=== PATIENT | female | born 1950 | race Caucasian/White ===

== ENCOUNTER 2019-05-05 09:51 | Inpatient (IN) | payer OTHER ==
[~2019-05-05] VITALS: Ht 160 cm; Wt 72.6 kg
[~2019-05-05 09:51] MED LIST: ACT30 PO; ECO81 PO; FOS10 PO; GLU850 PO; HUMI SC; LANTI SQ; NAP500 PO; NEU300 PO; NORCO1 TA2 PO; TOR10 PO
[2019-05-05 10:14] VITALS: Ht 160 cm; Wt 72.6 kg
[2019-05-05 10:47] LABS: BASOPHIL % 0.1 % (0-2); PLATELET COUNT 302 x10^3mcL (130-400); RED CELL DISTRIBUTION WIDTH 14.2 % (11.5-14.5)
[2019-05-05 11:15] LABS: ALBUMIN 3.8 g/dL (3.4-5.0); ALKALINE PHOSPHATASE 118 U/L (46-116); ALT/SGPT 28 U/L (14-59); AST/SGOT 31 U/L (15-37); CALCIUM 8.9 mg/dL (8.5-10.1); CARBON DIOXIDE 22.6 mmol/L (21-32); CHLORIDE SERUM 99 mmol/L (98-107); CREATININE SERUM 0.6 mg/dL (0.6-1.0); GFR1 > 60 mL/min; GLUCOSE SERUM 179 mg/dL (74-106); POTASSIUM SERUM 4.3 mmol/L (3.5-5.1); SODIUM SERUM 135 mmol/L (136-145); TOTAL PROTEIN, SERUM 8.1 g/dL (6.4-8.2)
[2019-05-05 11:22] LABS: CHOLESTEROL 124 mg/dL (<200); HDL CHOLESTEROL 64 mg/dL (40-60)
[2019-05-05 12:21] LABS: UA SPECIFIC GRAVITY 1.015 (1.005-1.035); microscopic required? YES; urine erythrocyte TRACE (NEGATIVE)
[2019-05-05] MEDS ORDERED: BASAGLAR K100 UNIT/1 (13:56)
[2019-05-05] MEDS ORDERED: ALENDRONATE SOD70 M3 (13:58)
[2019-05-05 14:44] VITALS: BP 111/44
[2019-05-05 18:02] VITALS: BP 99/45
[2019-05-05 20:58] VITALS: BP 118/67
[2019-05-06 05:41] VITALS: BP 132/58
[2019-05-06 06:37] LABS: BASOPHIL % 0.3 % (0-2); PLATELET COUNT 251 x10^3mcL (130-400); RED CELL DISTRIBUTION WIDTH 14.1 % (11.5-14.5)
[2019-05-06 07:26] LABS: CALCIUM 7.9 mg/dL (8.5-10.1); CARBON DIOXIDE 20.5 mmol/L (21-32); CHLORIDE SERUM 102 mmol/L (98-107); CREATININE SERUM 0.5 mg/dL (0.6-1.0); GFR1 > 60 mL/min; GLUCOSE SERUM 90 mg/dL (74-106); POTASSIUM SERUM 3.6 mmol/L (3.5-5.1); SODIUM SERUM 135 mmol/L (136-145)
[2019-05-06 08:48] VITALS: BP 133/61
[2019-05-06 11:14] VITALS: BP 133/61
[2019-05-06 12:47] VITALS: BP 150/59
[2019-05-07] MEDS ORDERED: ENALAPRIL MALEA20 MG PO (22:16)
[2019-05-07] MEDS ORDERED: ALENDRONATE SOD70 M3 PO (22:16)
[2019-05-07] MEDS ORDERED: FORTAMET1000 MG PO (22:17)
[2019-05-07] MEDS ORDERED: FEOSOL65 M1 PO (22:17)
[2019-05-07] MEDS ORDERED: ATORVASTATIN CA20 M1 PO (22:17)
[2019-05-07] MEDS ORDERED: GRALISE600 MG PO (22:17)
[2019-05-07] MEDS ORDERED: AMLODIPINE BES1 CAP PO (22:18)
[2019-05-07] MEDS ORDERED: BASAGLAR K100 UNIT/1 SQ (22:18)
== END 2019-05-06 16:15 | disposition home or self-care (01) | DRG 463 ==
LOC: ED 09:51 → DU 13:00 → MU 13:00 → DU 14:15 → MU 14:25
PROVIDERS: Emergency Medicine; ADMIT Internal Medicine
DX: N10 Acute pyelonephritis (principal); E11.40 Type 2 diabetes mellitus with diabetic neuropathy, unspecified; E11.65 Type 2 diabetes mellitus with hyperglycemia; B96.20 Unspecified Escherichia coli [E. coli] as the cause of diseases classified elsewhere; I10 Essential (primary) hypertension; Z16.12 Extended spectrum beta lactamase (ESBL) resistance; Z16.24 Resistance to multiple antibiotics; Z79.4 Long term (current) use of insulin; Z79.84 Long term (current) use of oral hypoglycemic drugs; Z79.82 Long term (current) use of aspirin; Z79.891 Long term (current) use of opiate analgesic; Z85.3 Personal history of malignant neoplasm of breast; Z90.12 Acquired absence of left breast and nipple; Z80.0 Family history of malignant neoplasm of digestive organs; Z82.0 Family history of epilepsy and other diseases of the nervous system; Z68.31 Body mass index [BMI] 31.0-31.9, adult
CPT/HCPCS: 82962; 87804; 90732; 97116-GP; G0378; J0696; J1885; J1956; J2405; J7030; J7050; Q0092

== ENCOUNTER 2019-05-07 19:03 | Inpatient (IN) | payer OTHER ==
[~2019-05-07] VITALS: Ht 154.9 cm; Wt 67.8 kg
[~2019-05-07 19:03] MED LIST changes: +ALENDRONATE SOD70 M3; +BASAGLAR K100 UNIT/1
[2019-05-07 19:45] VITALS: Ht 154.9 cm; Wt 67.8 kg
--- NOTE | 2019-05-07 19:52 | NUR ---
EKG IN PROGRESS IN TRIAGE
--- NOTE | 2019-05-07 20:02 | NUR ---
PT CAME TO ED CO ABNORMAL LAB RESULTS. PT WAS DISCHARGE FROM [facility] YESTERDAY AT 1800. PT WAS CALLED BACK TO THE HOSPITAL TO HAVE LABS [place]. PT STS THAT SHE IS EXPERIENCING COLD LIKE SYMPTOMS, SUCH ABD PAIN AND HEADACHE. NO S/S OF DISTRESS. RESP E/U. WILL CONTINUE TO MONTIOR.
[2019-05-07 20:58] LABS: PLATELET COUNT 290 x10^3mcL (130-400)
[2019-05-07 20:59] LABS: BASOPHIL % 0 % (0-2)
[2019-05-07 21:10] LABS: CALCIUM 8.4 mg/dL (8.5-10.1); CARBON DIOXIDE 23.1 mmol/L (21-32); CHLORIDE SERUM 98 mmol/L (98-107); CREATININE SERUM 0.5 mg/dL (0.6-1.0); GFR1 > 60 mL/min; GLUCOSE SERUM 121 mg/dL (74-106); POTASSIUM SERUM 4.1 mmol/L (3.5-5.1); SODIUM SERUM 132 mmol/L (136-145)
[2019-05-07 21:12] LABS: ALKALINE PHOSPHATASE 91 U/L (46-116); ALT/SGPT 22 U/L (14-59); AST/SGOT 16 U/L (15-37); BILIRUBIN TOTAL 0.4 mg/dL (0.20-1.00)
[2019-05-07 21:16] LABS: ALBUMIN 3.1 g/dL (3.4-5.0)
--- NOTE | 2019-05-07 21:31 | NUR ---
PT MEDICATED PER ORDER. PT VERBALIZED UNDERSTANDING OF MEDICATION TEACHING. SEE EMAR FOR DETAILS.
[2019-05-07 21:47] LABS: microscopic required? NO
[2019-05-07 21:59] LABS: UA SPECIFIC GRAVITY 1.015 (1.005-1.035); urine erythrocyte NEGATIVE (NEGATIVE)
[2019-05-07] MEDS ORDERED: ENALAPRIL MALEA20 MG PO (22:16)
[2019-05-07] MEDS ORDERED: ALENDRONATE SOD70 M3 PO (22:16)
[2019-05-07] MEDS ORDERED: FEOSOL65 M1 PO (22:17)
[2019-05-07] MEDS ORDERED: ATORVASTATIN CA20 M1 PO (22:17)
[2019-05-07] MEDS ORDERED: GRALISE600 MG PO (22:17)
[2019-05-07] MEDS ORDERED: FORTAMET1000 MG PO (22:17)
[2019-05-07] MEDS ORDERED: BASAGLAR K100 UNIT/1 SQ (22:18)
[2019-05-07] MEDS ORDERED: AMLODIPINE BES1 CAP PO (22:18)
--- NOTE | 2019-05-07 22:25 | NUR ---
REPORT GIVEN TO SEN CRAFT TO ASSUME CARE OF PT.
--- NOTE | 2019-05-07 22:26 | NUR ---
RECEIVED REPORT FROM ER NURSE. AWAITING FOR PTS ARRIVAL TO FLOOR.
--- NOTE | 2019-05-07 22:34 | NUR ---
PT TRANSFERRED TO MED SURG ACCOMPANIED BY FAMILY AND EMT. NO S/S OF DISTRESS. RESP E/U. IV SITE PATENT. NO S/S OF INFILTRATION.
--- NOTE | 2019-05-07 22:35 | NUR ---
RECEIVED PT FROM ED VIA [employer], PT WAS RECENTLY ADMITTED FOR [facility] AND RECEIVED A CALL TODAY TO COME BACK TO THE HOSPITAL FOR URINE CULTURE RESULT. AAOX4. C/O HEADACHE THAT HAS BEEN ONGOING FOR 2 WEEKS, PAIN IS WORSE ON THE RIGHT SIDE. DENIES DIZZINESS. SPEECH IS CLEAR. NO ACUTE VISION CHANGES NOTED. PER PT'S DAUGHTER, PT IS SCHEDULED FOR MRI W/ CONTRAST ON THE HEAD TOMORROW. NO SOB NOTED, LUNG SOUNDS CTA. DENIES CHEST PAIN/PRESSURE. DENIES ABDOMINAL DISCOMFORT. LAST BM=05/03/19. VOIDS. DENIES BURNING SENSATION ON URINATION. IV SITE PATENT AND INTACT. SIDE RAILS UPX2. CALL LIGHT ON REACH. ENDORSED TO PRIMARY NURSE LUANA FOR CONTINUITY OF CARE
--- NOTE | 2019-05-07 22:40 | NUR ---
RECEIVED PT FROM ABY CHATTERJEE. WILL TAKE OVER CONTINUITY OF CARE. ORIENTED PT TO ROOM AND SURROUNDINGS. DAUGHTER AT BEDSIDE. BED IN LOWEST POSITION. CALL LIGHT WITHIN REACH. WILL CONTINUE TO MONITOR.
[2019-05-07 22:50] VITALS: BP 132/62
--- NOTE | 2019-05-08 00:40 | NUR ---
PT IS ASLEEP IN BED, BUT EASILY AROUSABLE. ZOSYN INFUSING TO RAC, NO ERYTHEMA NOTED. DENIES ANY PAIN AT THIS TIME. BREATHING IS EVEN AND UNLABORED ON RA. DENIES SOB. DAUGHTER AT BEDSIDE. BED IN LOWEST POSITION. CALL LIGHT WITHIN REACH. WILL CONTINUE TO MONITOR.
--- NOTE | 2019-05-08 02:45 | NUR ---
PT RESTING COMFORTABLY IN BED, BREATHING IS EVEN AND UNLABORED ON RA. NO RESP DISTRESS NOTED. BED IN LOWEST POSITION. CALL LIGHT WITHIN REACH. WILL CONTINUE TO MONITOR.
--- NOTE | 2019-05-08 04:45 | NUR ---
NO ACUTE DISTRESS NOTED. WILL CONTINUE TO MONITOR.
[2019-05-08 05:40] VITALS: BP 137/63
[2019-05-08 06:06] LABS: BASOPHIL % 0.3 % (0-2); PLATELET COUNT 265 x10^3mcL (130-400); RED CELL DISTRIBUTION WIDTH 13.9 % (11.5-14.5)
--- NOTE | 2019-05-08 06:36 | NUR ---
PT SLEPT IN LONG INTERVALS THROUGHOUT THE NIGHT AND COMPLIED WITH NURSING CARE WITH NO ACUTE EVENTS OCCURRING DURING THE SHIFT. COMFORT AND SAFETY MEASURES MAINTAINED. ALL NEEDS ASSESSED AND ATTENDED TO. WILL CONTINUE TO MONITOR AND ENDORSE CARE TO DAY SHIFT NURSE.
[2019-05-08 06:50] LABS: CARBON DIOXIDE 18.7 mmol/L (21-32); CHLORIDE SERUM 101 mmol/L (98-107); CREATININE SERUM 0.5 mg/dL (0.6-1.0); GFR1 > 60 mL/min; GLUCOSE SERUM 86 mg/dL (74-106); POTASSIUM SERUM 3.7 mmol/L (3.5-5.1); SODIUM SERUM 135 mmol/L (136-145)
--- NOTE | 2019-05-08 07:09 | NUR ---
RECEIVED REPORT FROM LUANA CHATTERJEE. PATIENT SLEEPING COMFORTABLY IN BED WITH FAMILY AT BEDSIDE. NO NEEDS IDENTIFIED. SALINE LOCK TO RAC IS PATENT AND INTACT. NO REDNESS OR PAIN. PT ON ROOM AIR. NO C/O SOB AND NO DISTRESS NOTED. ALL QUESTIONS AND CONCERNS ADDRESSED.
[2019-05-08 08:36] VITALS: BP 146/62
[2019-05-08 12:47] VITALS: BP 129/47
--- NOTE | 2019-05-08 15:29 | NUR ---
SPOKE WITH DR TANNER TO REQUEST [facility] TIME CHANGE TO 0900 AND 2100 FOR HOME HEALTH VISITATIONS. [address] TANNER OK TO CHANGE TIME.
--- NOTE | 2019-05-08 15:33 | NUR ---
[facility] CALLED TO REQUEST PICC INSERTION FOR PATIENT. AWAITING CALL RETURN WITH R[facility]ALL.
[2019-05-08 16:24] VITALS: BP 121/54
--- NOTE | 2019-05-08 19:32 | NUR ---
PATIENT RESTING COMFORTABLY IN BED WITH FAMILY AT BEDSIDE. ALL NEEDS MET. STILL AWAITING PICC PLACEMENT. STILL NO CALL WITH ETA. WILL ENDORSE ALL CARE TO ONCOMING NURSE.
[2019-05-08 19:35] VITALS: BP 122/65
--- NOTE | 2019-05-08 19:40 | NUR ---
RECEIVED PT SITTING IN BED W/ VISITOR NEARBY. SHE IS ALERT,ORIENTED X4. NO SOB ON ROOM AIR. SHE HAS NO C/O PAIN. W/ HL TO RTAC INTACT. CALL LIGHT W/IN REACH.
--- NOTE | 2019-05-09 00:28 | NUR ---
PICC LINE NURSE MELQUIADES CALLED AND SAID THE FF. LABS ARE NEEDED FOR PICC LINE INSERTION: PT, PTT, PLATELETS. ALSO NEEDS CONSENT SIGNED BY PT AND DOCTOR.
[2019-05-09 04:40] VITALS: BP 109/50
--- NOTE | 2019-05-09 05:10 | NUR ---
PT SLEPT IN LONG INTERVALS. SHE HAD NO C/O PAIN OR DISCOMFORT. DUE IV MEDS GIVEN. SHE IS AMBULATORY W/ STEADY GAIT. HL TO RTAC INTACT AND PATENT. ALL NEEDS ATTENDED TO. CONTACT ISOLATION MAINTAINED.
[2019-05-09 06:22] LABS: BASOPHIL % 0.7 % (0-2); PLATELET COUNT 296 x10^3mcL (130-400); RED CELL DISTRIBUTION WIDTH 14.1 % (11.5-14.5)
--- NOTE | 2019-05-09 08:20 | NUR ---
CONSENT OF PICC LINE INSERTION SIGNED BY PATIENT. DAUGHTER AT BED SIDE FOR TRANSLATION.
[2019-05-09 08:56] VITALS: BP 141/58
--- NOTE | 2019-05-09 09:00 | NUR ---
RECEIVED PATIENT A/A/OX4; DIVEHI SPEAKING. NO ACUTE DISTRESS. DENIED PAIN. PATIENT HAD NO BM X5 DAYS. DENIED ABD PAIN. TOLERATED CCHO DIET. IVHL'D TO RAC. SITE CLEAN. DENIED DYSURIA. CONTACT ISOLATION FOR MDRO URINE CULTURE. DAUGHTER AT BED SIDE.
--- NOTE | 2019-05-09 12:19 | NUR ---
C/O NO BM X5 DAYS. / FLORES NOTIFED. DULCOLAX SUPP GIVEN. CONTINUE MONITOR.
[2019-05-09 12:42] VITALS: BP 126/58
--- NOTE | 2019-05-09 15:06 | NUR ---
PATIENT REPORTED THAT SHE HAD BM X2 AFTER SUPP GIVEN.
--- NOTE | 2019-05-09 17:10 | NUR ---
PICC RN COMPANY CALLED MULTIPLE TIMES TODAY RE:PICC LINE INSERTION. INFRASTRUCTURE TECHNICIAN TREV AND CERTIFIED MASTER SAFE TECHNICIAN KAYLIE MADE AWARE. PER CERTIFIED MASTER SAFE TECHNICIAN NO CALL BACK ALSO AFTER SHE LEFT A MESSAGE WITH THE COMPANY. ATTENDING NURSE NANETTE MADE AWARE.
[2019-05-09 17:14] VITALS: BP 123/61
--- NOTE | 2019-05-09 17:54 | NUR ---
CONDITION STABLE. WAITING FOR PICC LINE PLACEMENT.
--- NOTE | 2019-05-09 19:15 | NUR ---
RECEIVED PT IN BED AWAKE, ALERT,ORIENTED X4. FAMILY AT BEDSIDE. . PT W/ NO SOB ON ROOM AIR. SHE HAS NO C/O PAIN OR DISCOMFORT AT THIS TIME. PT WAITING OFR PICC LINE INSERTION TO BE DONE. W/ HL TO RTAC. CALL LIGHT W/IN REACH. PT ON CONTACT ISOLATION.
--- NOTE | 2019-05-09 20:10 | NUR ---
PICC LINE NURSE MELQUIADES AT BEDSIDE TO START PICC LINE INSERTION.
--- NOTE | 2019-05-09 20:25 | NUR ---
PICC LINE INSERTION DONE AT THIS TIME.
--- NOTE | 2019-05-09 20:57 | NUR ---
INFORMED DR. TANNER REGARDING RESULT OF CHEST X RAY TO VERIFY PICC LINE PLACEMENT. PER DR. TANNER IT'S OKAY TO USE PICC LINE.
--- NOTE | 2019-05-09 21:29 | NUR ---
PT MEDICATED W/ NORCO 5/325 MG PO FOR C/O PAIN TO RANULFO AND SHOULDER (POST PICC LINE INSERTION) 08/27.
[2019-05-09 21:51] VITALS: BP 148/56
--- NOTE | 2019-05-09 22:59 | NUR ---
IV TO RTAC REMOVED (PER PT REQUEST). MAY USE PICC LINE ORDERED.
--- NOTE | 2019-05-10 03:10 | NUR ---
PT SLEEPING SOUNDLY. NO S/S OF DISTRESS. DAUGHTER AT BEDSIDE.
--- NOTE | 2019-05-10 05:08 | NUR ---
PT SLEPT THROUGH THE NIGHT. SHE WAS MEDICATED X1 FOR C/O PAIN TO THE NEWLY INSERTED PICC LINE SITE TO RT UPPER ARM. PT REMAINS ALERT AND ORIENTED X4. SHE IS AMBULATORY. PT'S DAUGHTER AT BEDSIDE. ALL NEEDS ATTENDED TO. CONTACT ISOLATION MAINTAINED.
[2019-05-10 05:55] VITALS: BP 145/56
[2019-05-10 07:24] LABS: BASOPHIL % 0.4 % (0-2); PLATELET COUNT 328 x10^3mcL (130-400); RED CELL DISTRIBUTION WIDTH 14.1 % (11.5-14.5)
--- NOTE | 2019-05-10 07:30 | NUR ---
PT IS AAOX4. NORMAL S1S2 NOTED. RESP EVEN AND UNLABORED. LUNG SOUNDS CTA. ON R/A. PICC LINE TO RANULFO TWO LUMENS FLUSHED WITH GOOD BLOOD RETURN. COVERED WITH CDI DRESSING. PT DENIES PAIN AND DISCOMFORT AT THIS TIME. CONTACT PRECAUTIONS FOR MDRO IN URINE MAINTAINED. CALL LIGHT WITHIN REACH. BED IN LOWEST POSITION.
[2019-05-10 07:48] LABS: CALCIUM 8.4 mg/dL (8.5-10.1); CHLORIDE SERUM 101 mmol/L (98-107); CREATININE SERUM 0.4 mg/dL (0.6-1.0); GFR1 > 60 mL/min; GLUCOSE SERUM 118 mg/dL (74-106); POTASSIUM SERUM 3.5 mmol/L (3.5-5.1); SODIUM SERUM 136 mmol/L (136-145)
[2019-05-10 08:12] VITALS: BP 155/83
--- NOTE | 2019-05-10 08:37 | NUR ---
SCHEDULED MEDS GIVEN AND TOLERATED WELL. B/P 155/83 (107, HR 88. PT AND PT'S FAMILY EDUCATED ON CONTACT PRECAUTIONS, BOTH VERBALIZED UNDERSTANDING. PT DENIES PAIN AND DISCOMFORT AT THIS TIME. CALL LIGHT WITHIN REACH. DAUGHTER AT BEDSIDE. .
--- NOTE | 2019-05-10 10:40 | NUR ---
SPOKE TO MAGO AT CASE MANAGEMENT. SHE STATED THAT SHE IS LOOKING INTO HOME HEALTH FOR THE PT'S DISCHARGE. ANNETTE WILL CALL BACK WHEN CONFIRMED. PT MADE AWARE.
--- NOTE | 2019-05-10 11:55 | NUR ---
BLOOD SUGAR 150, NO INSULIN INDICATED PER RISS. SCHEDULED MED GIVEN AND TOLERATED WELL. PT DENIES PAIN AND DISCOMFORT. CALL LIGHT WITHIN REACH.
[2019-05-10 13:03] VITALS: BP 130/60
--- NOTE | 2019-05-10 14:00 | NUR ---
PT IS RESTING, RESP EVEN AND UNLABORED. NO DISTRESSN NOTED. DAUGHTER AT BEDSIDE. CALL LIGHT WITHIN REACH.
--- NOTE | 2019-05-10 15:29 | NUR ---
RECEIVED A CALL FROM ANNETTE([employer]IAL [employer]) AND SAYS TP HOME HEALTH IV ABX ARRANGED BUT PT HAS TO RECEIVE HER LAST DOSE OF [facility] TONIGHT PRIOR TO D/C HOME TONIGHT. CALLED AND SPOKE TO AND MADE HIM AWARE OF ABOVE, NEW ORDER RECEIVED OKAY TO GIVE MERREM AT 2000 TONIGHT PRIOR TO D/C HOME AND OKAY TO DISCHARGE AFTER THE DOSE GIVEN. SPOKE TO VICENTA CHATTERJEE ASSIGNED TO THIS PT AND MADE HER AWARE OF ABOVE.
[2019-05-10 16:24] VITALS: BP 130/60
--- NOTE | 2019-05-10 17:20 | NUR ---
DISCHARGE INSTRUCTION REVIEWED. ALL QUESTIONS ANSWERED. ALL FORMS SIGNED AND PLACE IN CHART. PT IS TO DISCHARGE AFTER 2000 DOSE OF ANTIBIOTICS. SCHEDULED MEDS GIVEN AND TOLERATED WELL. PT DENIES PAIN AND DISCOMFORT. B/S 143, NO INSULIN INDICATED PER RISS. CALL LIGHT WITHIN REACH.
--- NOTE | 2019-05-10 18:03 | NUR ---
PT IS AAOX4. RESP EVEN AND UNLABORED. PICC LINE TO RANULFO PATENT, 2 LUMENS FLUSHED WITH GOOD BLOOD RETURN. PT DENIES PAIN AND DISCOMFORT. FAMILY AT BESIDE. CALL LIGHT WITHIN REACH.
--- NOTE | 2019-05-10 19:20 | NUR ---
RECEIVED PT AWAKE ALERT AND VERBALLY RESPONSIVE IN OCCITAN.DENIES CHESTPAIN AT THIS TIME.BP 145/61 MMHG,HR 111.PICC LINE TO RANULFO WITH DRESSING CDI.PT FOR DISCHARGE TONIGHT AFTER MERREM IV ADMINISTRATION.DAUGHTER AT BEDSIDE TO PROVIDE TRANSPORTATION HOME.WILL CONTINUE TO MONITOR.
[2019-05-10 19:32] VITALS: BP 145/61
--- NOTE | 2019-05-10 20:53 | NUR ---
AKASH IV COMPLETED.DISCHARGE HOME WITH INSTRUCTIONS GIVEN .TO CALL HOME HEALTH IN AM.ALL BELONGINGS SENT WITH DAUGHTER.IN NO DISTRESS.
== END 2019-05-10 21:00 | disposition home or self-care (01) | DRG 463 ==
LOC: ED 19:03 → MU 22:08
PROVIDERS: Emergency Medicine; ADMIT Internal Medicine
PROC: 02HV33Z Insertion of Infusion Device into Superior Vena Cava, Percutaneous Approach (ICD-10-PCS; principal; 2019-05-09)
PROC: B548ZZA Ultrasonography of Superior Vena Cava, Guidance (ICD-10-PCS; 2019-05-09)
DX: N10 Acute pyelonephritis (principal); B96.29 Other Escherichia coli [E. coli] as the cause of diseases classified elsewhere; I10 Essential (primary) hypertension; E11.9 Type 2 diabetes mellitus without complications; Z68.27 Body mass index [BMI] 27.0-27.9, adult; Z90.12 Acquired absence of left breast and nipple; Z79.899 Other long term (current) drug therapy; Z79.84 Long term (current) use of oral hypoglycemic drugs
CPT/HCPCS: 82962; C1751; G0378; J1885; J2185; J2543; J2550; J7030; J7040; Q0092